=== PATIENT | female | born 1990 | race Caucasian/White ===

== ENCOUNTER 2020-10-04 06:41 | Emergency (ER) | payer OTHER ==
[~2020-10-04 06:41] MED LIST: TRAMADOL HCL50 MG PO
== END 2020-10-04 07:35 | disposition home or self-care (01) ==
LOC: FER 06:41
DX: S40.012A Contusion of left shoulder, initial encounter (principal); R51.9 Headache, unspecified; F32.9 Major depressive disorder, single episode, unspecified; Z88.0 Allergy status to penicillin; Z79.899 Other long term (current) drug therapy; V49.40XA Driver injured in collision with unspecified motor vehicles in traffic accident, initial encounter; Y92.410 Unspecified street and highway as the place of occurrence of the external cause
CPT/HCPCS: 71045; 73030

== ENCOUNTER → 2022-01-18 | Day surgery (SDC) | payer OTHER ==
[~2022-01-18] VITALS: Ht 160 cm; Wt 141.1 kg
[~2022-01-18] MED LIST changes: +BUPROPION XL300 MG PO; +BUSPAR5 MG PO; +IBUPROFEN800 M1 PO; +METFORMIN HCL500 M3 PO; +NAPROXEN500 MG PO; +NORETHINDRONE0.35 MG PO; +PROPRANOLOL HCL80 M1 PO; +SUMATRIPTAN SUC25 MG PO; +VENLAFAXINE HCL75 M1 PO
[2022-01-18 07:55] LABS: HCG (URINE) SCREEN NEGATIVE (NEGATIVE)
[2022-01-18 08:06] LABS: BUN/CREAT RATIO (CALC) 19.4 RATIO; CREATININE 0.98 mg/dL (0.51-0.95); POTASSIUM 4.1 mmol/L (3.5-5.1)
== END | disposition home or self-care (01) ==
LOC: FAS 06:54
PROVIDERS: Anesthesiology; Obstetrics & Gynecology
DX: N84.0 Polyp of corpus uteri (principal); N93.9 Abnormal uterine and vaginal bleeding, unspecified; N94.10 Unspecified dyspareunia; F41.9 Anxiety disorder, unspecified; F32.A Depression, unspecified; E78.5 Hyperlipidemia, unspecified; E03.9 Hypothyroidism, unspecified; E66.01 Morbid (severe) obesity due to excess calories; Z87.891 Personal history of nicotine dependence; Z68.43 Body mass index [BMI] 50.0-59.9, adult; Z88.0 Allergy status to penicillin; Z88.1 Allergy status to other antibiotic agents; Z88.8 Allergy status to other drugs, medicaments and biological substances; Z91.013 Allergy to seafood; Z79.84 Long term (current) use of oral hypoglycemic drugs; Z79.899 Other long term (current) drug therapy; Z72.89 Other problems related to lifestyle
CPT/HCPCS: 36415; 80048; 84703; 93005; J1100; J1885; J2250; J2405; J2704; J3010; J7120; J7298